=== PATIENT | male | born 1960 | race Caucasian/White ===

== ENCOUNTER 2025-09-06 09:41 | Day surgery (SDC) | payer OTHER ==
[~2025-09-06] VITALS: Ht 185.4 cm; Wt 130.0 kg
[~2025-09-06 09:41] MED LIST: AMLO1TAB24 PO; METO1TAB87 PO; OMEP-173 PO; PHENYLEPHRINE 10% OPHTH SOL 5ML OD PRN
[2025-09-06] MEDS ORDERED: LISI20TA37 PO (10:54)
[2025-09-06] MEDS: OFLOXACIN 0.3 % (OCUFLOX) OPTH SOL 5ML OD ONE (10:55)
[2025-09-06] MEDS: LIDOCAINE 3.5% 1 ML OPHTH TOPICAL GEL OU ONE (10:55)
[2025-09-06] MEDS: TROPICAMIDE 1% OPHTH SOLN 15ML OD SCH (10:56)
[2025-09-06] MEDS: PHENYLEPHRINE 2.5% OPHTH SOL 2ML OD SCH (10:56)
[2025-09-06] MEDS: CYCLOPENTOLATE 1% OPHTH SOLN 2 ML BTL OD SCH (10:56)
[2025-09-06] MEDS ORDERED: MIDAZOLAM INJ 2 MG/2 ML VIAL As Ordered ONE (11:15)
[2025-09-06] MEDS: LIDOCAINE 1% SDV 5 ML VIAL As Ordered ONE (11:32)
[2025-09-06] MEDS: BSS IRRIG/VANCO(10MG)/TOBRA(5MG)/EPINEPH(1:1000-0.5CC)500ML BAG-ORONLY As Ordered ONE (11:33)
[2025-09-06] MEDS: CEFUROXIME 1 MG/0.1 ML INTRACAMERAL INJ As Ordered ONE (11:33)
[2025-09-06 11:43] VITALS: BP 150/80; TEMP 97.8; O2SAT 99
== END 2025-09-06 12:10 | disposition home or self-care (01) ==
LOC: M SDC 09:41
PROVIDERS: ATTEND Ophthalmology
DX: H25.11 Age-related nuclear cataract, right eye (principal); I10 Essential (primary) hypertension; K21.9 Gastro-esophageal reflux disease without esophagitis; G47.30 Sleep apnea, unspecified; Z79.899 Other long term (current) drug therapy; Z87.891 Personal history of nicotine dependence; Z90.49 Acquired absence of other specified parts of digestive tract
CPT/HCPCS: 66984; J0697; J2250; J3010; V2632